=== PATIENT | male | born 1985 | race Caucasian/White ===

== ENCOUNTER 2017-05-22 08:23 | Emergency (ER) | payer OTHER ==
[~2017-05-22] VITALS: Ht 188 cm; Wt 98.0 kg
[2017-05-22 08:25] VITALS: BP 135/83; PULSE 108; RESP 13; TEMP 98.3; O2SAT 97
[2017-05-22] MEDS ORDERED: SODIUM CHLOR 0.9% 1000 ML INJ 1,000 ML IV ONE (10:00)
[2017-05-22] MEDS ORDERED: SODIUM CHLORIDE 0.9% FLUSH 10 ML FLUSH IVF PRN (10:00)
[2017-05-22] MEDS ORDERED: HYDROmorphone HCL PF 1 MG/ML VIAL IVS ONE (10:00)
[2017-05-22] MEDS ORDERED: ONDANSETRON HCL 4 MG/2 ML VIAL IVP ONE (10:00)
[2017-05-22 10:39] LABS: AUTOMATED NEUTROPHIL # 14.7 TH/MM3 (1.8-7.7); BASOPHIL % 0.3 % (0.0-2.0); EOSINOPHIL # 0.1 TH/MM3 (0-0.4); EOSINOPHIL % 0.3 % (0.0-4.0); HEMATOCRIT 46.2 % (39.0-51.0); HEMO FLAGS DIFF FINAL; LYMPH % 8.2 % (9.0-44.0); LYMPHOCYTE # 1.4 TH/MM3 (1.0-4.8); MEAN CELL VOLUME 87.3 FL (80.0-100.0); MEAN CORPUSCULAR HEMOGLOBIN 30.2 PG (27.0-34.0); MEAN CORPUSCULAR HGB CONC 34.7 % (32.0-36.0); MONO % 5.3 % (0.0-8.0); NEUT % 85.9 % (16.0-70.0); PLATELET COUNT 319 TH/MM3 (150-450); RED CELL DISTRIBUTION WIDTH 13.4 % (11.6-17.2); WHITE BLOOD COUNT 17.1 TH/MM3 (4.0-11.0)
--- NOTE | 2017-05-22 10:56 | RADRPT ---
EXAM DATE/TIME: 05/22/2017 09:12 [place] COMPARISON: No previous studies available for comparison. INDICATIONS : Testicular trauma. MEDICAL HISTORY : Testicular trauma. Substance use. Tobacco use. SURGICAL HISTORY : None. ENCOUNTER: Initial ACUITY: 1 day PAIN SCORE: 6/10 LOCATION: Bilateral scrotum. MEASUREMENTS: RIGHT TESTICLE: 3.9 x 2.3 x 1.7cm LEFT TESTICLE: 3.4 x 2.6 x 1.6cm FINDINGS: SCROTUM: There is marked scrotal thickening present. This is probably a hematoma. RIGHT TESTICLE: The right testicle is normal in size but does have a hypoechoic area in the lower pole of the right testicle that could be a contusion. LEFT TESTICLE: The left testicle appears reasonably normal. Symmetrical blood flow is present in both testicles. Hemorrhagic clotted hydrocele could not be entirely excluded. CONCLUSION: Probable contusion to the right testicle without obvious fracture. Extensive scrotal edema. Traumatic hydrocele containing blood cannot be excluded. Clotted blood is very difficult to separate from scrotal wall. Jeremy Holliday MD FACR on May 22, 2017 at 10:36 Board Certified Radiologist. This report was verified electronically.
[2017-05-22 10:57] LABS: BACTERIA, URINE OCC /hpf; BLOOD, URINE TRACE (NEG); COMMENT (UR) CULTURE INDICATED; CULTURE IF INDICATED CULTURE INDICATED; GLUCOSE,URINE NEG (NEG); KETONE, URINE NEG (NEG); MUCUS URINE MANY /lpf (OCC); NITRITE,URINE NEG (NEG); PH, URINE 6.5 (5.0-8.5); SQUAMOUS EPITHELIAL CELL URINE 1 /hpf (0-5); URINE COLOR YELLOW (YELLW/STRAW)
[2017-05-22 11:02] LABS: BICARBONATE 29.7 MEQ/L (21.0-32.0)
--- NOTE | 2017-05-22 11:08 | PD ---
HPI Chief Complaint: Complaint Time Seen by Provider: 09:11 Travel History International Travel<30 days: No Contact w/Intl Traveler<30days: No Traveled to known affect area: No History of Present Illness HPI 31 yo M c/o scrotal pain after a saddle injury while attempting to jump over a handrail. Pain started suddenly approximately 2 hours ago. 8/10 constant. Pt urinated once without hematuria. PFSH Past Medical History Medical History: Denies Significant Hx Tetanus Vaccination: > 5 Years Influenza Vaccination: No Past Surgical History Surgical History: No Previous Surgery Social History Alcohol Use: Yes (1-2 months) Tobacco Use: Yes Substance Use: Yes (cannabis) Allergies-Medications (Allergen,Severity, Reaction): Coded Allergies: No Known Allergies (Unverified , 05/22/17) Reported Meds & Prescriptions Reported Meds & Active Scripts Active Percocet (Oxycodone-Acetaminophen) 5-325 mg Tab 1-2 Tab PO Q6H PRN Cipro (Ciprofloxacin HCl) 500 Mg Tab 500 Mg PO BID 7 Days Review of Systems Except as stated in HPI: all other systems reviewed are Neg General / Constitutional: No: Fever Physical Exam Narrative GENERAL: 31-year-old male well-nourished well-developed GENITOURINARY: There is ecchymosis swelling and tenderness about the scrotum. Left scrotum is normal in size and nontender well the right side is enlarged and somewhat less distinct. No blood at the urethral meatus. No crepitus. Overall size is about that of a large orange. SKIN: Warm and dry. HEAD: Atraumatic. Normocephalic. EYES: Pupils equal and round. No scleral icterus. No injection or drainage. ENT: No nasal bleeding or discharge. Mucous membranes pink and moist. NECK: Trachea midline. No JVD. CARDIOVASCULAR: Regular rate and rhythm. RESPIRATORY: No accessory muscle use. Clear to auscultation. Breath sounds equal bilaterally. GASTROINTESTINAL: Abdomen soft, non-tender, nondistended. Hepatic and splenic margins not palpable. MUSCULOSKELETAL: Extremities without clubbing, cyanosis, or edema. No obvious deformities. NEUROLOGICAL: Awake and alert. No obvious cranial nerve deficits. Motor grossly within normal limits. Five out of 5 muscle strength in the arms and legs. Normal speech. PSYCHIATRIC: Appropriate mood and affect; insight and judgment normal. Data Data Last Documented VS Vital Signs Date Time Temp Pulse Resp B/P (MAP) Pulse Ox O2 Delivery O2 Flow Rate FiO2 05/22/17 12:01 05/22/17 09:06 18 05/22/17 08:25 98.3 108 97 Vital signs reviewed, heart rate 135/83 Orders Orders Urinalysis - C+S If Indicated (05/22/17 09:12) Us Testicles W Doppler (05/22/17 09:12) Basic Metabolic Panel (Bmp) (05/22/17 09:51) Complete Blood Count With Diff (05/22/17 09:51) Iv Access Insert/Monitor (05/22/17 09:51) Ondansetron Inj (Zofran Inj) (05/22/17 10:00) Sodium Chloride 0.9% Flush (Ns Flush) (05/22/17 10:00) Hydromorphone Pf Inj (Dilaudid Pf Inj) (05/22/17 10:00) Sodium Chlor 0.9% 1000 Ml Inj (Ns 1000 M (05/22/17 10:00) Urine Culture (05/22/17 10:09) Labs Laboratory Tests Test 05/22/17 10:09 White Blood Count 17.1 TH/MM3 Red Blood Count 5.30 MIL/MM3 Hemoglobin 16.0 GM/DL Hematocrit 46.2 % Mean Corpuscular Volume 87.3 FL Mean Corpuscular Hemoglobin 30.2 PG Mean Corpuscular Hemoglobin Concent 34.7 % Red Cell Distribution Width 13.4 % Platelet Count 319 TH/MM3 Mean Platelet Volume 7.3 FL Neutrophils (%) (Auto) 85.9 % Lymphocytes (%) (Auto) 8.2 % Monocytes (%) (Auto) 5.3 % Eosinophils (%) (Auto) 0.3 % Basophils (%) (Auto) 0.3 % Neutrophils # (Auto) 14.7 TH/MM3 Lymphocytes # (Auto) 1.4 TH/MM3 Monocytes # (Auto) 0.9 TH/MM3 Eosinophils # (Auto) 0.1 TH/MM3 Basophils # (Auto) 0.0 TH/MM3 CBC Comment DIFF FINAL Differential Comment Urine Color YELLOW Urine Turbidity HAZY Urine pH 6.5 Urine Specific [place] 1.034 Urine Protein TRACE mg/dL Urine Glucose (UA) NEG mg/dL Urine Ketones NEG mg/dL Urine Occult Blood TRACE Urine Nitrite NEG Urine Bilirubin NEG Urine Urobilinogen 2.0 MG/DL Urine Leukocyte Esterase LARGE Urine RBC 9 /hpf Urine WBC 82 /hpf Urine Squamous Epithelial Cells 1 /hpf Urine Bacteria OCC /hpf Urine Mucus MANY /lpf Microscopic Urinalysis Comment CULTURE INDICATED Blood Urea Nitrogen 12 MG/DL Creatinine 1.25 MG/DL Random Glucose 83 MG/DL Calcium Level 9.1 MG/DL Sodium Level 139 MEQ/L Potassium Level 4.0 MEQ/L Chloride Level 105 MEQ/L Carbon Dioxide Level 29.7 MEQ/L Anion Gap 4 MEQ/L Estimat Glomerular Filtration Rate 68 ML/MIN MDM Medical Decision Making Medical Screen Exam Complete: Yes Emergency Medical Condition: Yes Medical Record Reviewed: Yes Differential Diagnosis Fracture of the testicle, torsion, traumatic hydrocele, urethral injury Narrative Course CBC & BMP Diagram 05/22/17 10:09 Calcium Level 9.1 Urinalysis possible UTI Last 24 hours Impressions Scrotum Ultrasound 05/22/17 0912 Signed Impressions: Service Date/Time: Monday, May 22, 2017 09:12 - CONCLUSION: Probable contusion to the right testicle without obvious fracture. Extensive scrotal edema. Traumatic hydrocele containing blood cannot be excluded. Clotted blood is very difficult to separate from scrotal wall. Jeremy Holliday MD FACR Case discussed with urology: Scrotal support pain medication follow-up in urology office 1 week Case discussed with the patient is agreeable plan He has appeared comfortable throughout his ER stay. He has urinated. Return precautions discussed. Diagnosis Primary Impression: Contusion of scrotum Qualified Codes: S30.22XA - Contusion of scrotum and testes, initial encounter Additional Impression: Contusion of testicle Qualified Codes: S30.22XA - Contusion of scrotum and testes, initial encounter Referrals: Esvin Plascencia MD 2 days Additional Instructions: You have a choice when it comes to health care, and we are glad that you chose [facility]. Hopefully, we have met your expectations on today's visit. You are welcome to return to [facility] at any time, as we are committed to meeting the health care needs of our community. Med/Other Pt SpecificInfo: Prescription(s) given Scripts Oxycodone-Acetaminophen (Percocet) 5-325 mg Tab 1-2 TAB PO Q6H Y for PAIN SCALE 6 TO 10, #20 TAB 0 Refills Prov: Delano Espinoza MD 05/22/17 Ciprofloxacin (Cipro) 500 Mg Tab 500 MG PO BID for Infection for 7 Days, #14 TAB 0 Refills Prov: Delano Espinoza MD 05/22/17 Disposition: 01 DISCHARGE HOME Condition: Stable Delano Espinoza MD May 22, 2017 11:08
[2017-05-22] MEDS ORDERED: CIPR-9 PO (11:31)
[2017-05-22] MEDS ORDERED: PERC5TAB12 PO (11:31)
== END 2017-05-22 12:05 | disposition home or self-care (01) ==
LOC: NEPD 08:23
DX: S30.22XA Contusion of scrotum and testes, initial encounter (principal); N43.3 Hydrocele, unspecified; A49.8 Other bacterial infections of unspecified site; Z72.0 Tobacco use; W22.8XXA Striking against or struck by other objects, initial encounter
CPT/HCPCS: 76870; 80048; 81001; 85025; 87086; 93975; 96374; 96375; 99285; J1170; J2405; J7030